=== PATIENT | male | born 1990 | race Caucasian/White ===

== ENCOUNTER 2018-01-01 16:24 | Emergency (ER) | payer BC ==
[2018-01-01] MEDS: IBUPROFEN 600 MG TAB PO (17:32)
== END 2018-01-01 19:10 | disposition home or self-care (01) ==
LOC: FTE 16:24
DX: S62.231A Other displaced fracture of base of first metacarpal bone, right hand, initial encounter for closed fracture (principal); W31.89XA Contact with other specified machinery, initial encounter; Y92.9 Unspecified place or not applicable
CPT/HCPCS: 29125; 73130-RT; 99283-25